=== PATIENT | female | born 1985 | race Caucasian/White ===

== ENCOUNTER → 2020-02-04 | Outpatient (REF) | payer OTHER ==
[2020-02-04 12:43] LABS: CREATININE, URINE 45.4 MG/DL; MALB URINE SIEMENS < 5.0 MG/L
== END ==
LOC: M LAB REF 11:53
PROVIDERS: ATTEND Nurse Practitioner Family
DX: E10.649 Type 1 diabetes mellitus with hypoglycemia without coma (principal)